=== PATIENT | female | born 1995 | race Caucasian/White ===

== ENCOUNTER 2021-06-29 02:25 | Emergency (ER) | payer SELFPAY ==
[~2021-06-29] VITALS: Ht 165.1 cm; Wt 48.5 kg
--- NOTE | 2021-06-29 02:30 | NUR ---
PT AMBULATED TO ER WITH STEADY GAIT C/O LLQ ABD PAIN RADIATING TO BACK. PT IS A/O X4, NO SOB OR LABORED BREATHING. AFEBRILE. DENIES CP/PRESSURE. DENIES ANY N/V/D.
--- NOTE | 2021-06-29 02:50 | NUR ---
DR. BAZZI AT BEDSIDE, MSE IN PROGRESS.
--- NOTE | 2021-06-29 04:00 | NUR ---
SMITH () WAS CHAPARONED BY DEMI.
[2021-06-29 04:05] LABS: *BILIRUBIN,URIN NEGATIVE (NEGATIVE); *BLOOD, URINE 2+ (NEGATIVE); *CLARITY,URINE CLOUDY (CLEAR); *COLOR,URINE YELLOW (YELLOW); *KETONES,URINE NEGATIVE (NEGATIVE); *UROBILINOGEN,URINE 0.2 E.U./dl (NORMAL); LEUKOCYTE ESTERASE ,URINE NEGATIVE (NEGATIVE); NITRITE, URINE NEGATIVE (NEGATIVE); UGLUCOSE NEGATIVE (NEGATIVE)
[2021-06-29 04:07] LABS: HEMATOCRIT 32.4 % (31.2-41.9); MEAN CORPUSCULAR HEMOGLOBIN 29.1 uug (24.7-32.8); MEAN CORPUSCULAR VOLUME 86.5 fL (75.5-95.3); PLATELET COUNT (AUTO) 229 K/uL (179-408)
[2021-06-29 04:10] LABS: BACTERIA,URINE NONE SEEN /HPF (NONE SEEN); SQUAMOUS EPITHELIAL CELL,UR FEW /HPF (NONE SEEN); WBC,URINE 0-3 /HPF (0-3)
[2021-06-29 04:11] LABS: CARBON DIOXIDE 25 mmol/L (21-32); CHLORIDE 102 mmol/L (98-107); CREATININE 0.6 mg/dL (0.6-1.3); GLUCOSE 96 mg/dL (74-106); POTASSIUM 3.9 mmol/L (3.5-5.1); UREA NITROGEN, BLOOD 15 mg/dL (7-18)
[2021-06-29 04:11] LABS: URINE AMORPHOUS PHOSPHATES MANY /HPF
[2021-06-29 04:17] LABS: ALANINE AMINOTRANSFERASE 22 U/L (14-59); ALKALINE PHOSPHATASE 81 U/L (50-136); ASPARTATE AMINOTRANSFERASE 9 U/L (15-37); BILIRUBIN,DIRECT 0.2 mg/dL (0.0-0.2); BILIRUBIN,TOTAL 0.7 mg/dL (0.2-1.0); TOTAL PROTEIN, SERUM 6.8 g/dL (6.4-8.2)
[2021-06-29] MEDS ORDERED: ONDA4TAB5 PO (04:34)
--- NOTE | 2021-06-29 05:18 | NUR ---
Patient discharged to home in stable condition. Written and verbal after care instructions given. Patient verbalizes understanding of instructions. Stressed follow up or return to ER for worsening s/s. Steady gait, denies any pain/discomfort upon discharge. No changes in LOC. No n/v/d.
[2021-06-29 05:19] VITALS: BP 120/76
== END 2021-06-29 05:21 | disposition home or self-care (01) ==
LOC: ER 02:36
DX: N83.202 Unspecified ovarian cyst, left side (principal); D64.9 Anemia, unspecified
CPT/HCPCS: 36415; 76856; 85025; 87086; A4663